=== PATIENT | male | born 1965 | race Caucasian/White ===

== ENCOUNTER → 2018-11-23 | Outpatient (CLI) | payer MEDICARE, OTHER ==
[~2018-11-23] MED LIST: GENVOYA TABLET1 EACH PO; GLIM2 PO; LEVSOD125 PO; LOSA25 PO; METF500 PO; Omeprazole20 M1; VALACYCLOVIR1000 MG PO; VARE1 PO
[2018-11-23 12:53] LABS: Adenovirus F 40/41 Not Detected (NOT DETECT); Astrovirus Not Detected (NOT DETECT); Campylobacter Sp Not Detected (NOT DETECT); Cryptosporidium Not Detected (NOT DETECT); Cyclospora Cayetanensis Not Detected (NOT DETECT); E. Coli O157 Not Detected (NOT DETECT); Entamoeba Histolytica Not Detected (NOT DETECT); Enteroaggregative E. coli-EAEC Not Detected (NOT DETECT); Enteropathogenic E. coli-EPEC Not Detected (NOT DETECT); Enterotoxigenic E. coli-ETEC Not Detected (NOT DETECT); Giardia Lamblia Not Detected (NOT DETECT); Norovirus GI/GII Not Detected (NOT DETECT); Plesiomonas Shigelloides Not Detected (NOT DETECT); Rotavirus A Not Detected (NOT DETECT); Salmonella Sp Not Detected (NOT DETECT); Sapovirus Not Detected (NOT DETECT); Shiga Toxin-prod E. coli-STEC Not Detected (NOT DETECT); Shigella/Enteroin E. coli-EIEC Not Detected (NOT DETECT); Vibrio Cholerae Not Detected (NOT DETECT); Vibrio Sp Not Detected (NOT DETECT); Yersinia Enterocolitica Not Detected (NOT DETECT)
== END ==
LOC: LAB 11:10 → LAB SHORT 11:10
PROVIDERS: Internal Medicine Infectious Disease
DX: K52.9 Noninfective gastroenteritis and colitis, unspecified (principal)
CPT/HCPCS: 87507; 89055

== ENCOUNTER 2019-08-08 17:23 | Inpatient (IN) | payer MEDICARE, OTHER ==
[~2019-08-08] VITALS: Ht 177.8 cm; Wt 94.2 kg
[~2019-08-08 17:23] MED LIST changes: -Omeprazole20 M1; +Omeprazole20 M1 PO; +SITA50T2 PO
[2019-08-08 18:53] LABS: BASOPHILS ABSOLUTE AUTO 0.03 K/mm3 (0.00-0.23); BASOPHILS PERCENT AUTO 0 % (0-2); EOSINOPHILS ABSOLUTE AUTO 0.05 K/mm3 (0.00-0.68); EOSINOPHILS PERCENT AUTO 1 % (0-6); Hematocrit 42.5 % (37.0-53.0); Hemoglobin 14.7 g/dL (13.5-17.5); IMMATURE GRAN ABSOLUTE AUTO 0.04 K/mm3 (0.00-0.10); IMMATURE GRAN PERCENT AUTO 1 % (0-1); LYMPHOCYTES ABSOLUTE AUTO 1.29 K/mm3 (0.84-5.20); LYMPHOCYTES PERCENT AUTO 19 % (21-46); MONOCYTES ABSOLUTE AUTO 0.35 K/mm3 (0.16-1.47); MONOCYTES PERCENT AUTO 5 % (4-13); Mean Corpuscular HGB 31.7 pg (26.0-34.0); Mean Corpuscular HGB Conc 34.6 g/dL (31.5-36.5); Mean Corpuscular Volume 92 fL (80-100); Mean Platelet Volume 11.2 fL (9.1-12.4); NEUTROPHILS PERCENT AUTO 74 % (41-73); Platelet Count 126 K/mm3 (150-400); RDW Coefficient Variation 12.6 % (11.7-14.2); RDW Standard Deviation 42.2 fL (35.1-46.3); Red Blood Cell Count 4.63 M/mm3 (4.30-5.90); White Blood Cell Count 6.86 K/mm3 (4.00-11.30)
[2019-08-08] MEDS ORDERED: Metformin HCl1000 MG PO (19:07)
[2019-08-08] MEDS ORDERED: Mobic15 MG PO (19:08)
[2019-08-08 19:27] LABS: Alanine Aminotransfer (ALT/SGP 92 U/L (12-78); Alk Phos 72 U/L (50-136); Anion Gap 10 mmol/L (6-16); Aspartate Aminotrans (AST/SGOT 51 U/L (12-37); Bilirubin, Total 0.5 mg/dL (0.1-1.0); Blood Urea Nitrogen 11 mg/dL (8-24); CO2, Blood 20 mmol/L (21-32); Calcium, Blood 9.3 mg/dL (8.5-10.1); Chloride, Blood 102 mmol/L (98-108); Creatinine, Blood 0.73 mg/dL (0.60-1.20); Glomerular Filtration Rate >60 (60-); Glucose, Blood 253 mg/dL (70-99); Potassium, Blood 3.8 mmol/L (3.5-5.5); Sodium, Blood 132 mmol/L (136-145); Troponin I <0.015 ng/mL (0.000-0.040)
--- NOTE | 2019-08-08 23:37 | NUR ---
ASSUMED PT CARE FROM [facility] AT 2150 PT ALERT AND ORIENTED AND ABLE TO MAKE HIS NEEDS KNOWN. DENIES CHEST PAIN UPON ARRIVAL TO UNIT. RHYTHM SHOWS NSR WITH ST ELEVATION; HR 80-90'S WITH ELEVATED BP'S 150-160'S. TR BAND IN PLACE INFLATED WITH AIR. SITE IS SOFT, NON-TENDER WITH NO SIGNS OF HEMATOMA OR BLEEDING. CAP REFILL TO FINGERS IS LESS THAN 3 SECS AND PT DENIES ANY NUMBNESS/TINGLING. PT STATED HE HAD THE URGE TO PEE; PER REPORT PT RECEIVED A ONE TIME DOSE OF LASIX 20MG D/T PT COUGHING ON TABLE AND DR. GARCIA WANTED TO AVOID PT FROM GOING INTO PULMONARY EDEMA. PT HAS BEEN VOIDING ADEQUATELY AND LUNG SOUNDS ARE CLEAR T/O. [facility]NP LAB IS NOT ELEVATED; THEREFORE, DR. GARCIA WANTS TO CONTINUE IV FLUIDS AT 75MLS/HR. PT CONTINUES TO DENY CHEST PAIN. JUST ANXIOUS TO GO HOME. CALL LIGHT LEFT WITHIN REACH AND PT IS ABLE TO MAKE HIS NEEDS KNOWN.
[2019-08-09 00:11] LABS: Creatine Kinase MB 427.9 ng/mL (0.0-3.6); Creatine Kinase MB Index 10.8 (0.0-4.0)
--- NOTE | 2019-08-09 06:07 | NUR ---
END OF SHIFT SUMMARY PT HAS REMAINED ALERT AND ORIENTED T/O SHIFT. TR BAND REMOVED FROM R RADIAL SITE AT APPROXIMATELY 0330; NO OOZING, HEMATOMA, SWELLING, OR TENDERNESS NOTED TO SITE. PT DENIES ANY NUMBNESS/TINGLING TO FINGERS. CAP REFILL <3 SEC. RHYTHM REMAINS SINUS WITH ST ELEVATION. PT DENIED CHEST PAIN T/O SHIFT. HOWEVER, HE DID STATE HE WOULD WAKE UP IN A PANIC AND FEEL SHORT OF BREATHE. PT HAD ONE EPISODE OF EMESIS THAT WAS THICK IN TEXTURE, WITH UNDIGESTED FOOD THAT WAS NOTED TO BE A DARK YELLOW; 700CC COUNTED FOR TOTAL. PT MEDICATED WITH ZOFRAN THAT WAS EFFECTIVE. SPOT CHECKED BLOOD SUGAR, WHICH WAS NOTED TO BE 150. PT VERY COOPERATIVE WITH CARES. CALL LIGHT LEFT WITHIN REACH; PT ABLE TO MAKE HIS NEEDS KNOWN.
[2019-08-09 06:27] LABS: Alanine Aminotransfer (ALT/SGP 133 U/L (12-78); Albumin, Blood 3.7 g/dL (3.4-5.0); Alk Phos 61 U/L (50-136); Anion Gap 7 mmol/L (6-16); Aspartate Aminotrans (AST/SGOT 598 U/L (12-37); Bilirubin, Total 0.8 mg/dL (0.1-1.0); Blood Urea Nitrogen 10 mg/dL (8-24); CO2, Blood 23 mmol/L (21-32); Calcium, Blood 8.8 mg/dL (8.5-10.1); Chloride, Blood 103 mmol/L (98-108); Creatinine, Blood 0.67 mg/dL (0.60-1.20); Globulin, Blood 3.7 g/dL (2.2-4.0); Glomerular Filtration Rate >60 (60-); Glucose, Blood 175 mg/dL (70-99); Potassium, Blood 3.8 mmol/L (3.5-5.5); Sodium, Blood 133 mmol/L (136-145); Total Protein, Blood 7.4 g/dL (6.4-8.2)
[2019-08-09 06:28] LABS: BASOPHILS ABSOLUTE AUTO 0.04 K/mm3 (0.00-0.23); BASOPHILS PERCENT AUTO 0 % (0-2); EOSINOPHILS ABSOLUTE AUTO 0.02 K/mm3 (0.00-0.68); EOSINOPHILS PERCENT AUTO 0 % (0-6); Hematocrit 41.2 % (37.0-53.0); Hemoglobin 14.4 g/dL (13.5-17.5); IMMATURE GRAN ABSOLUTE AUTO 0.06 K/mm3 (0.00-0.10); IMMATURE GRAN PERCENT AUTO 1 % (0-1); LYMPHOCYTES ABSOLUTE AUTO 1.48 K/mm3 (0.84-5.20); LYMPHOCYTES PERCENT AUTO 15 % (21-46); MONOCYTES ABSOLUTE AUTO 0.64 K/mm3 (0.16-1.47); MONOCYTES PERCENT AUTO 7 % (4-13); Mean Corpuscular HGB 31.2 pg (26.0-34.0); Mean Corpuscular Volume 89 fL (80-100); Mean Platelet Volume 11.3 fL (9.1-12.4); NEUTROPHILS ABSOLUTE AUTO 7.45 K/mm3 (1.96-9.15); NEUTROPHILS PERCENT AUTO 77 % (41-73); Platelet Count 109 K/mm3 (150-400); RDW Coefficient Variation 12.6 % (11.7-14.2); RDW Standard Deviation 41.2 fL (35.1-46.3); Red Blood Cell Count 4.61 M/mm3 (4.30-5.90); White Blood Cell Count 9.69 K/mm3 (4.00-11.30)
[2019-08-09 07:01] LABS: Creatine Kinase MB 339.9 ng/mL (0.0-3.6); Creatine Kinase MB Index 11.1 (0.0-4.0)
--- NOTE | 2019-08-09 07:14 | NUR ---
START OF SHIFT NOTE: RECEIVED REPORT FROM MELVI CUEVAS RN, ASSUMED CARE, PATIENT IS AWAKE, ALERT AND ORIENTED, STATES THAT HE "FEELS WORN OUT", SAID THAT "EVERY TIME I DOZE OFF I WAKE UP AND HAVE ANXIETY ABOUT NOT WAKING UP WHEN I GO TO SLEEP", WILL CALL DR. GARCIA FOR ANXIETY MED, LUNG SOUNDS ARE CLEAR, NSR WITH HR IN 70'S, BT'S PRESENT, USES URINAL, PEDAL PULSES PRESENT, RIGHT RADIAL ACCESS SITE C/D/I, NO HEMATOMA, NO BLEEDING NOTED, AFEBRILE, DENIES CHEST PAIN/DISCOMFORT AT THIS TIME, CALL LIGHT IN REACH, WILL CONTINUE TO MONITOR.
--- NOTE | 2019-08-09 07:44 | NUR ---
PATIENT IS PLEASANT AND COOPERATIVE, VERBALIZED SOME ANXIETY ABOUT HOSPITAL STAY AND POSSIBLY "NOT WAKING UP WHEN GOING TO SLEEP", MEDICATIONS WERE DISCUSSED AND PATIENT REPORTED THAT HE HAS "SEVERE CHEST PAIN" WHEN TAKING STATINS, WILL HAVE HOME MEDS BROUGHT IN, PATIENT WAS ASKED ABOUT HIS CODE STATUS, NOC SHIFT REPORTED THAT PATIENT WANTED TO BE A DNR, THIS AM HE MENTIONED THAT FOR NOW HE WANTS TO REMAIN A FULL CODE, BLOOD SUGARS CHECKED AND RESULT WAS 187, NO COVERAGE NEEDED AT THIS TIME, CALL LIGHT IN REACH, WILL CONTINUE TO MONITOR.
--- NOTE | 2019-08-09 08:09 | NUR ---
CALLED DR. GARCIA AND PROVIDER HER WITH UPDATE ON PATIENT CONDITION, NEW ORDERS RECEIVED, SHE WILL BE IN TO SEE PATIENT WITHIN 30 TO 40 MINUTES.
--- NOTE | 2019-08-09 08:45 | NUR ---
DR. GARCIA IN TO SEE PATIENT, NEW ORDERS RECEIVED.
--- NOTE | 2019-08-09 09:27 | NUR ---
PATIENT'S SO IN TO BRING IN HOME MEDICATION, SENT TO PHARMACY FOR REGISTRATION AND LABEL. PATIENT CONTINUES TO C/O CHEST PAIN, FEELS THAT PAIN IS INCREASING, DESCRIBES PAIN IF HE GOT "HIT IN THE CHEST".
--- NOTE | 2019-08-09 09:46 | NUR ---
PATIENT EXPRESSED INTEREST IN HAVING MUSIC THERAPY, VELMA STRICKLAND CONTACTED, HE WILL BE IN SHORTLY TO SEE PATIENT.
--- NOTE | 2019-08-09 10:00 | NUR ---
PATIENT RECEIVED 1 MG OF DILAUDID FOR CONTINUED CHEST DISCOMFORT AND INABILITY TO RELAX, FRIEND AT BEDSIDE, CALL LIGHT IN REACH, WILL CONTINUE TO MONITOR.
--- NOTE | 2019-08-09 10:34 | NUR ---
PATIENT'S LEFT UPPER ARM PIV INFILTRATED, REMOVED, AND NEW PIV PLACED IN LEFT FA USING ULTRASOUND, PATIENT TOLERATED WELL, PATIENT ALSO STATED THAT HE HAS "NO MORE CHEST DISCOMFORT AND FEELS MORE RELAXED", VELMA, MUSIC THERAPY, IN, PATIENT FEELING BETTER, CALL LIGHT IN REACH, WILL CONTINUE TO MONITOR.
--- NOTE | 2019-08-09 11:20 | NUR ---
PATIENT SLEEPING AT THIS TIME, NO S/S OF DISTRESS, CALL LIGHT IN REACH, WILL CONTINUE TO MONITOR.
--- NOTE | 2019-08-09 12:11 | NUR ---
PATIENT CONTINUES TO SLEEP AND REST COMFORTABLY, NO S/S OF DISTRESS NOTED/OBSERVED, CALL LIGHT IN REACH, WILL CONTINUE TO MONITOR.
--- NOTE | 2019-08-09 12:17 | NUR ---
CALLED [facility] ABOUT PENDING ECHO, WILL BE DONE THIS AFTERNOON.
--- NOTE | 2019-08-09 12:32 | NUR ---
IMAGING IN TO DO ORDERED ECHO.
--- NOTE | 2019-08-09 13:07 | NUR ---
ECHO DONE, PATIENT AWAKE AND EATING LUNCH AT THIS TIME.
--- NOTE | 2019-08-09 13:20 | NUR ---
Echocardiogram completed.
[2019-08-09 14:27] LABS: Creatine Kinase MB 197.9 ng/mL (0.0-3.6)
[2019-08-09 14:39] LABS: Creatine Kinase MB Index 9.8 (0.0-4.0); Troponin I 91.5 ng/mL (0.000-0.040)
--- NOTE | 2019-08-09 17:00 | NUR ---
REPORT CALLED TO SKYLER MUNIZ, IN PCU, PATIENT TRANSFERRED TO PCU ROOM 4 VIA WHEELCHAIR WITH ALL HIS BELONGINGS, AND MEDICATIONS.
--- NOTE | 2019-08-09 17:25 | NUR ---
PATIENT TRASFERRED FROM ICU 3 TP PCU4. SR ON TELE 80-90'S, DENIES ANY CHEST PAIN AT THIS TIME. VSS, ON RA. LUNGS CLEAR THROUGHOUT. SKIN INTACT. R RADIAL SITE WNL, BOARD TO R FA REMAINS IN PLACE. PATIENT AMBULATORY WITH A SBA. ORIENTED TO ROOM AND USE OF CALL LIGHT. 2 20G IV'S TO L WRIST AND FA WNL. NS @ 75ML/HR INFUSING. PATIENT DENIES ANY NAUSEA OR ABDOMINAL PAIN, TOLERATING CARDIAC DIET. VOIDING WELL TODAY, REPORTS LASTY BM ON 08/07. ACHS BLOOD SUGARS, NO COVERAGE NEEDED.
[2019-08-10 04:14] LABS: Anion Gap 5 mmol/L (6-16); Blood Urea Nitrogen 11 mg/dL (8-24); CHOL/HDL RATIO 5.1; CO2, Blood 25 mmol/L (21-32); Calcium, Blood 8.5 mg/dL (8.5-10.1); Chloride, Blood 108 mmol/L (98-108); Cholesterol 144 mg/dL (50-200); Creatinine, Blood 0.73 mg/dL (0.60-1.20); Glomerular Filtration Rate >60 (60-); Glucose, Blood 151 mg/dL (70-99); HDL Cholesterol 28 mg/dL (>39); LDL/HDL RATIO 2.2; Low Density Lipoprotein Chol 63 mg/dL (0-110); Potassium, Blood 4.3 mmol/L (3.5-5.5); Sodium, Blood 138 mmol/L (136-145); Triglycerides 266 mg/dL (30-160); Very Low Density Lipoprot Chol 53 mg/dL (6-32)
--- NOTE | 2019-08-10 05:36 | NUR ---
PCU NOC SHIFT SUMMARY PATIENT ALERT AND ORIENTED X4 T/O SHIFT. INDEPENDENT IN ROOM. PATIENT DENIES ANY CHEST PAIN T/O SHIFT. HEART RATE REMAINED NSR WITH NO CARDIAC EVENTS PER MECHANICAL SYSTEMS CONTROL ENGINEER (CYNTHIA). ARM BOARD REMAINED INPLACE ON RIGHT RADIAL - TEGADERM DRESS NOTED OVER PCI SITE, NO BLEEDING OR HEMATOMA NOTED. PATIENT RESTED WELL. CALL LIGHT W/I REACH, BED IN LOWEST POSITION. PATIENT DENIES ANY NEEDS AT THIS TIME. WILL CONTINUE TO MONITOR AND GIVE REPORT TO MIGUEL BOOTHE RN.
--- NOTE | 2019-08-10 07:50 | NUR ---
AM NOTE. ASSUMED CARE OF PT APROX 0700, PT IS A&Ox4 AND IND IN THE ROOM. PT WAS ADMITTED FOR STEMI S/P STENT PLACEMENT. PT DENIES CHEST PAIN AT THIS TIME. PT'S BP IS 150/100, PT MEDICATED PER EMAR. NO EDEMA NOTED ON ASSESSMENT. L/S CLEAR T/O, PT IS ON RA. BT PRESENT AND HYPERACTIVE. ABD IS SOFT AND NONTENDER TO PALP. RADIAL SITE IS C/D/I, ARM BOARD REMOVED, TEGADERM STILL INTACT. CALL LIGHT IN REACH, WILL CONTINUE TO MONITOR.
[2019-08-10] MEDS ORDERED: ASPI81CH PO (08:57)
[2019-08-10] MEDS ORDERED: CLOP75 PO (08:58)
[2019-08-10] MEDS ORDERED: Lopressor 50 mg50 MG PO (08:59)
[2019-08-10] MEDS ORDERED: NITR.4SL SL (09:00)
--- NOTE | 2019-08-10 10:54 | NUR ---
PT D/C PT D/C HOME, MEDICATIONS CALLED INTO PT'S PHARMACY OF CHOICE, EDUCATION AND D/C INSTRUCTIONS PROVIDED TO PT. IV'S REMOVED WNL. PT DENIES ANY CHEST PAIN/PRESSURE, N/V OR SOB.
== END 2019-08-10 10:53 | disposition home or self-care (01) | DRG 247 ==
LOC: ER 17:23 → ICUW 19:41 → ICUE 20:25 → PCU 08-09 17:21
PROVIDERS: Physician Assistant; ADMIT Internal Medicine Interventional Cardiology
PROC: 027034Z Dilation of Coronary Artery, One Artery with Drug-eluting Intraluminal Device, Percutaneous Approach (ICD-10-PCS; principal; 2019-08-08)
PROC: 02C03ZZ Extirpation of Matter from Coronary Artery, One Artery, Percutaneous Approach (ICD-10-PCS; 2019-08-08)
PROC: B2111ZZ Fluoroscopy of Multiple Coronary Arteries using Low Osmolar Contrast (ICD-10-PCS; 2019-08-08)
DX: I21.3 ST elevation (STEMI) myocardial infarction of unspecified site (principal); I47.2 Ventricular tachycardia; B20 Human immunodeficiency virus [HIV] disease; M19.90 Unspecified osteoarthritis, unspecified site; I10 Essential (primary) hypertension; E78.5 Hyperlipidemia, unspecified; K21.9 Gastro-esophageal reflux disease without esophagitis; E03.9 Hypothyroidism, unspecified; E11.9 Type 2 diabetes mellitus without complications; F17.210 Nicotine dependence, cigarettes, uncomplicated; Z79.84 Long term (current) use of oral hypoglycemic drugs; F41.9 Anxiety disorder, unspecified; M06.9 Rheumatoid arthritis, unspecified
CPT/HCPCS: 36415; 71045; 80048; 80053; 80061; 82550; 82553; 82947; 83036; 83880; 84484; 85025; 85347; 92973; 93005; 93010; 93306; 93454; 96374; 96375; 96376; 99152; 99153; 99285-25; A9270; C1725; C1757; C1769; C1874; C1887; C1894; C9606; J0282; J1170; J1644; J1940; J2250; J2405; J3010; J3246; J7030; Q9967

== ENCOUNTER 2020-03-19 06:57 | Day surgery (SDC) | payer MEDICARE, OTHER ==
[~2020-03-19] VITALS: Ht 175.3 cm; Wt 97.7 kg
[~2020-03-19 06:57] MED LIST changes: +ASPI81CH PO; +CLOP75 PO; +Lopressor 50 mg50 MG PO; +Metformin HCl1000 MG PO; +Mobic15 MG PO; +NITR.4SL SL
== END 2020-03-19 09:07 | disposition home or self-care (01) ==
LOC: ORSCSDS 06:57
PROVIDERS: Ophthalmology
PROC: 08RJ3JZ Replacement of Right Lens with Synthetic Substitute, Percutaneous Approach (ICD-10-PCS; principal; 2020-03-19 08:30)
DX: H25.11 Age-related nuclear cataract, right eye (principal); E11.9 Type 2 diabetes mellitus without complications; F17.210 Nicotine dependence, cigarettes, uncomplicated; I25.2 Old myocardial infarction; Z79.899 Other long term (current) drug therapy; Z79.84 Long term (current) use of oral hypoglycemic drugs
CPT/HCPCS: 82947; J2001; J2250; J3010; J3301; J7040; V2632

== ENCOUNTER 2020-06-19 04:38 | Inpatient (IN) | payer MEDICARE, OTHER ==
[~2020-06-19] VITALS: Ht 175.3 cm; Wt 100.1 kg
[~2020-06-19 04:38] MED LIST changes: -Metformin HCl1000 MG PO
[2020-06-19 05:15] LABS: BASOPHILS ABSOLUTE AUTO 0.05 K/mm3 (0.00-0.23); BASOPHILS PERCENT AUTO 1 % (0-2); EOSINOPHILS ABSOLUTE AUTO 0.05 K/mm3 (0.00-0.68); EOSINOPHILS PERCENT AUTO 1 % (0-6); Hematocrit 39.2 % (37.0-53.0); Hemoglobin 13.4 g/dL (13.5-17.5); IMMATURE GRAN PERCENT AUTO 1 % (0-1); LYMPHOCYTES ABSOLUTE AUTO 1.19 K/mm3 (0.84-5.20); LYMPHOCYTES PERCENT AUTO 13 % (21-46); MONOCYTES ABSOLUTE AUTO 0.49 K/mm3 (0.16-1.47); MONOCYTES PERCENT AUTO 5 % (4-13); Mean Corpuscular HGB 31.5 pg (26.0-34.0); Mean Corpuscular HGB Conc 34.2 g/dL (31.5-36.5); Mean Corpuscular Volume 92 fL (80-100); Mean Platelet Volume 10.7 fL (9.1-12.4); NEUTROPHILS ABSOLUTE AUTO 7.16 K/mm3 (1.96-9.15); NEUTROPHILS PERCENT AUTO 79 % (41-73); Platelet Count 174 K/mm3 (150-400); RDW Coefficient Variation 13.8 % (11.7-14.2); RDW Standard Deviation 46.5 fL (35.1-46.3); Red Blood Cell Count 4.26 M/mm3 (4.30-5.90); White Blood Cell Count 9.04 K/mm3 (4.00-11.30)
[2020-06-19 05:35] LABS: Alanine Aminotransfer (ALT/SGP 32 U/L (12-78); Albumin, Blood 3.5 g/dL (3.4-5.0); Albumin/Globulin Ratio 0.8 (0.8-1.8); Alk Phos 65 U/L (50-136); Anion Gap 8 mmol/L (6-16); Aspartate Aminotrans (AST/SGOT 26 U/L (12-37); Bilirubin, Total 1.3 mg/dL (0.1-1.0); Blood Urea Nitrogen 9 mg/dL (8-24); Bun/Creatinine Ratio 11.2 (12.0-20.0); CO2, Blood 22 mmol/L (21-32); Calcium, Blood 8.8 mg/dL (8.5-10.1); Chloride, Blood 101 mmol/L (98-108); Creatinine, Blood 0.81 mg/dL (0.60-1.20); Globulin, Blood 4.5 g/dL (2.2-4.0); Glomerular Filtration Rate >60 (60-); Glucose, Blood 148 mg/dL (70-99); Potassium, Blood 4.3 mmol/L (3.5-5.5); Sodium, Blood 131 mmol/L (136-145); Troponin I 0.294 ng/mL (0.000-0.040)
[2020-06-20 05:58] LABS: Anion Gap 10 mmol/L (6-16); Blood Urea Nitrogen 13 mg/dL (8-24); Bun/Creatinine Ratio 13.9 (12.0-20.0); CO2, Blood 23 mmol/L (21-32); Calcium, Blood 8.9 mg/dL (8.5-10.1); Chloride, Blood 102 mmol/L (98-108); Creatinine, Blood 0.93 mg/dL (0.60-1.20); Glomerular Filtration Rate >60 (60-); Glucose, Blood 141 mg/dL (70-99); Sodium, Blood 135 mmol/L (136-145)
[2020-06-20 09:05] LABS: U Amphetamine Screen Not Detected; U Barbituate Screen Not Detected; U Benzodiazapine Screen Not Detected; U Buprenorphine Screen Not Detected; U Cannabinoids Screen Not Detected; U Cocaine Screen Not Detected; U Methadone Screen Not Detected; U Methamphetamine Screen Not Detected; U Opiates Screen DETECTED; U Oxycodone Screen Not Detected; U Phencyclidine Screen Not Detected; U Propoxyphene Screen Not Detected
[2020-06-20 14:11] LABS: % CD 4 POS. LYMPH. 42.7 % (30.8-58.5); ABSOLUTE CD 4 HELPER 555 /uL (359-1519); BASOS 0 % (Not Estab.); EOS 1 % (Not Estab.); EOS (ABSOLUTE) 0.1 x10E3/uL (0.0-0.4); HEMATOCRIT 37.2 % (37.5-51.0); HEMOGLOBIN 12.8 g/dL (13.0-17.7); IMMATURE GRANS (ABS) 0.1 x10E3/uL (0.0-0.1); IMMATURE GRANULOCYTES 1 % (Not Estab.); LYMPHS 19 % (Not Estab.); LYMPHS (ABSOLUTE) 1.3 x10E3/uL (0.7-3.1); MCH 31.5 pg (26.6-33.0); MCHC 34.4 g/dL (31.5-35.7); MCV 92 fL (79-97); MONOCYTES 7 % (Not Estab.); MONOCYTES(ABSOLUTE) 0.5 x10E3/uL (0.1-0.9); NEUTROPHILS 72 % (Not Estab.); NEUTROPHILS (ABSOLUTE) 4.9 x10E3/uL (1.4-7.0); PLATELETS 161 x10E3/uL (150-450); RBC 4.06 x10E6/uL (4.14-5.80); RDW 14.8 % (11.6-15.4); WBC 6.9 x10E3/uL (3.4-10.8)
[2020-06-20] MEDS ORDERED: ASPI81CH PO (16:59)
[2020-06-20] MEDS ORDERED: FURO20 PO (17:00)
[2020-06-20] MEDS ORDERED: SPIR25 PO (17:00)
== END 2020-06-20 17:13 | disposition home or self-care (01) | DRG 291 ==
LOC: ER 04:38 → ERHOLD 06:19 → ICUE 07:51 → MEDS 13:07
PROVIDERS: Emergency Medicine; Nurse Practitioner Acute Care; ADMIT Internal Medicine
DX: I11.0 Hypertensive heart disease with heart failure (principal); J96.01 Acute respiratory failure with hypoxia; E87.1 Hypo-osmolality and hyponatremia; C81.90 Hodgkin lymphoma, unspecified, unspecified site; I50.33 Acute on chronic diastolic (congestive) heart failure; E11.9 Type 2 diabetes mellitus without complications; I10 Essential (primary) hypertension; E03.9 Hypothyroidism, unspecified; Z21 Asymptomatic human immunodeficiency virus [HIV] infection status; I25.10 Atherosclerotic heart disease of native coronary artery without angina pectoris; M06.9 Rheumatoid arthritis, unspecified; I25.2 Old myocardial infarction; F17.210 Nicotine dependence, cigarettes, uncomplicated; Z79.84 Long term (current) use of oral hypoglycemic drugs; Z79.02 Long term (current) use of antithrombotics/antiplatelets
CPT/HCPCS: 36415; 71045; 80048; 80053; 82947; 83605; 83880; 84132; 84145; 84443; 84484; 85025; 86361; 87040; 93005; 93010; 94644; 96374; 99285-25; 99406; A9270; A9270-GY; C8929; J1650; J1940; Q9957

== ENCOUNTER → 2021-08-05 | Outpatient (CLI) | payer MEDICARE, OTHER ==
[~2021-08-05] MED LIST changes: +FURO20 PO; +SPIR25 PO
[2021-08-05 13:01] LABS: BASOPHILS ABSOLUTE AUTO 0.04 K/mm3 (0.00-0.23); BASOPHILS PERCENT AUTO 1 % (0-2); EOSINOPHILS ABSOLUTE AUTO 0.08 K/mm3 (0.00-0.68); EOSINOPHILS PERCENT AUTO 1 % (0-6); Hematocrit 46.6 % (37.0-53.0); Hemoglobin 16.2 g/dL (13.5-17.5); IMMATURE GRAN ABSOLUTE AUTO 0.06 K/mm3 (0.00-0.10); IMMATURE GRAN PERCENT AUTO 1 % (0-1); LYMPHOCYTES ABSOLUTE AUTO 1.52 K/mm3 (0.84-5.20); LYMPHOCYTES PERCENT AUTO 23 % (21-46); MONOCYTES ABSOLUTE AUTO 0.49 K/mm3 (0.16-1.47); MONOCYTES PERCENT AUTO 7 % (4-13); Mean Corpuscular HGB 32.1 pg (26.0-34.0); Mean Corpuscular HGB Conc 34.8 g/dL (31.5-36.5); Mean Corpuscular Volume 92 fL (80-100); NEUTROPHILS ABSOLUTE AUTO 4.49 K/mm3 (1.96-9.15); NEUTROPHILS PERCENT AUTO 67 % (41-73); Platelet Count 153 K/mm3 (150-400); RDW Coefficient Variation 13.4 % (11.7-14.2); Red Blood Cell Count 5.05 M/mm3 (4.30-5.90); White Blood Cell Count 6.68 K/mm3 (4.00-11.30)
[2021-08-05 14:08] LABS: Alanine Aminotransfer (ALT/SGP 39 U/L (12-78); Albumin, Blood 3.9 g/dL (3.4-5.0); Albumin/Globulin Ratio 0.9 (0.8-1.8); Alk Phos 61 U/L (50-136); Anion Gap 8 mmol/L (6-16); Aspartate Aminotrans (AST/SGOT 26 U/L (12-37); Bilirubin, Total 0.9 mg/dL (0.1-1.0); Blood Urea Nitrogen 16 mg/dL (8-24); Bun/Creatinine Ratio 15.5 (12.0-20.0); CO2, Blood 25 mmol/L (21-32); Calcium, Blood 9.1 mg/dL (8.5-10.1); Chloride, Blood 101 mmol/L (98-108); Creatinine, Blood 1.03 mg/dL (0.60-1.20); Globulin, Blood 4.3 g/dL (2.2-4.0); Glomerular Filtration Rate >60 (60-); Glucose, Blood 151 mg/dL (70-99); Potassium, Blood 4.1 mmol/L (3.5-5.5); Sodium, Blood 134 mmol/L (136-145); Total Protein, Blood 8.2 g/dL (6.4-8.2)
[2021-08-06 13:10] LABS: % CD 4 POS. LYMPH. 34.9 % (30.8-58.5); ABSOLUTE CD 4 HELPER 558 /uL (359-1519); BASOS 0 % (Not Estab.); EOS 1 % (Not Estab.); EOS (ABSOLUTE) 0.1 x10E3/uL (0.0-0.4); HEMATOCRIT 45.9 % (37.5-51.0); HEMOGLOBIN 16.1 g/dL (13.0-17.7); IMMATURE GRANS (ABS) 0.1 x10E3/uL (0.0-0.1); IMMATURE GRANULOCYTES 1 % (Not Estab.); LYMPHS 23 % (Not Estab.); LYMPHS (ABSOLUTE) 1.6 x10E3/uL (0.7-3.1); MCH 32.4 pg (26.6-33.0); MCHC 35.1 g/dL (31.5-35.7); MCV 92 fL (79-97); MONOCYTES 7 % (Not Estab.); MONOCYTES(ABSOLUTE) 0.5 x10E3/uL (0.1-0.9); NEUTROPHILS 68 % (Not Estab.); NEUTROPHILS (ABSOLUTE) 4.5 x10E3/uL (1.4-7.0); PLATELETS 150 x10E3/uL (150-450); RBC 4.97 x10E6/uL (4.14-5.80); RDW 13.5 % (11.6-15.4); WBC 6.7 x10E3/uL (3.4-10.8)
[2021-08-07 08:11] LABS: HIV-1 RNA BY PCR <20 (.)
== END | disposition home or self-care (01) ==
LOC: LAB SHORT 11:59
PROVIDERS: Internal Medicine Infectious Disease
DX: B20 Human immunodeficiency virus [HIV] disease (principal)
CPT/HCPCS: 80053; 85025

== ENCOUNTER → 2021-09-14 | Outpatient (CLI) | payer MEDICARE, OTHER ==
[2021-09-14 16:09] LABS: BASOPHILS ABSOLUTE AUTO 0.04 K/mm3 (0.00-0.23); BASOPHILS PERCENT AUTO 1 % (0-2); EOSINOPHILS PERCENT AUTO 2 % (0-6); Hematocrit 47.5 % (37.0-53.0); Hemoglobin 16.3 g/dL (13.5-17.5); IMMATURE GRAN ABSOLUTE AUTO 0.04 K/mm3 (0.00-0.10); IMMATURE GRAN PERCENT AUTO 1 % (0-1); LYMPHOCYTES ABSOLUTE AUTO 1.55 K/mm3 (0.84-5.20); LYMPHOCYTES PERCENT AUTO 25 % (21-46); MONOCYTES ABSOLUTE AUTO 0.44 K/mm3 (0.16-1.47); MONOCYTES PERCENT AUTO 7 % (4-13); Mean Corpuscular HGB 31.3 pg (26.0-34.0); Mean Corpuscular HGB Conc 34.3 g/dL (31.5-36.5); Mean Corpuscular Volume 91 fL (80-100); Mean Platelet Volume 10.9 fL (9.1-12.4); NEUTROPHILS ABSOLUTE AUTO 4.05 K/mm3 (1.96-9.15); NEUTROPHILS PERCENT AUTO 65 % (41-73); Platelet Count 183 K/mm3 (150-400); RDW Coefficient Variation 12.9 % (11.7-14.2); RDW Standard Deviation 42.4 fL (35.1-46.3); Red Blood Cell Count 5.21 M/mm3 (4.30-5.90); White Blood Cell Count 6.22 K/mm3 (4.00-11.30)
[2021-09-14 17:49] LABS: Alanine Aminotransfer (ALT/SGP 41 U/L (12-78); Albumin, Blood 4.1 g/dL (3.4-5.0); Albumin/Globulin Ratio 0.9 (0.8-1.8); Alk Phos 72 U/L (50-136); Anion Gap 8 mmol/L (6-16); Aspartate Aminotrans (AST/SGOT 28 U/L (12-37); Bilirubin, Total 1.1 mg/dL (0.1-1.0); Blood Urea Nitrogen 13 mg/dL (8-24); Bun/Creatinine Ratio 14.4 (12.0-20.0); CO2, Blood 23 mmol/L (21-32); Calcium, Blood 9.7 mg/dL (8.5-10.1); Chloride, Blood 104 mmol/L (98-108); Globulin, Blood 4.6 g/dL (2.2-4.0); Glomerular Filtration Rate >60 (60-); Glucose, Blood 82 mg/dL (70-99); Potassium, Blood 4.5 mmol/L (3.5-5.5); Sodium, Blood 135 mmol/L (136-145); Total Protein, Blood 8.7 g/dL (6.4-8.2)
== END | disposition home or self-care (01) ==
LOC: LAB 14:55 → LAB SHORT 14:55
PROVIDERS: Nurse Practitioner Family
DX: I50.9 Heart failure, unspecified (principal)
CPT/HCPCS: 80053; 83880; 85025

== ENCOUNTER 2023-01-20 09:11 | Day surgery (SDC) | payer MEDICARE, OTHER ==
[~2023-01-20] VITALS: Ht 175.3 cm; Wt 81.2 kg
[~2023-01-20 09:11] MED LIST changes: +METO25ER PO; +PANT40 PO
[2023-01-20] MEDS ORDERED: BUPR150ER PO (09:35)
[2023-01-20] MEDS ORDERED: JARDIANCE10 MG PO (09:35)
--- NOTE | 2023-01-20 10:08 | NUR ---
PATIENT TO THE LAB FOR THE PROCEDURE.
[2023-01-20 10:10] LABS: International Normalized Ratio 1.07; Prothrombin Time Results 11.2 Sec (9.7-11.5)
[2023-01-20 10:14] LABS: Bun/Creatinine Ratio 22.5 (12.0-20.0); Calcium, Blood 9.2 mg/dL (8.5-10.1); Creatinine, Blood 1.02 mg/dL (0.60-1.20); Potassium, Blood 4.5 mmol/L (3.5-5.5)
[2023-01-20 12:37] LABS: BASOPHILS ABSOLUTE AUTO 0.04 K/mm3 (0.00-0.23); BASOPHILS PERCENT AUTO 1 % (0-2); EOSINOPHILS ABSOLUTE AUTO 0.08 K/mm3 (0.00-0.68); EOSINOPHILS PERCENT AUTO 2 % (0-6); Hematocrit 45.2 % (37.0-53.0); Hemoglobin 13.7 g/dL (13.5-17.5); IMMATURE GRAN ABSOLUTE AUTO 0.02 K/mm3 (0.00-0.10); IMMATURE GRAN PERCENT AUTO 0 % (0-1); LYMPHOCYTES ABSOLUTE AUTO 1.29 K/mm3 (0.84-5.20); LYMPHOCYTES PERCENT AUTO 24 % (21-46); MONOCYTES ABSOLUTE AUTO 0.48 K/mm3 (0.16-1.47); MONOCYTES PERCENT AUTO 9 % (4-13); Mean Corpuscular HGB 24.1 pg (26.0-34.0); Mean Corpuscular HGB Conc 30.3 g/dL (31.5-36.5); Mean Corpuscular Volume 80 fL (80-100); Mean Platelet Volume 10.5 fL (9.1-12.4); NEUTROPHILS ABSOLUTE AUTO 3.49 K/mm3 (1.96-9.15); NEUTROPHILS PERCENT AUTO 65 % (41-73); Platelet Count 200 K/mm3 (150-400); RDW Coefficient Variation 16.3 % (11.7-14.2); RDW Standard Deviation 44.6 fL (35.1-46.3); Red Blood Cell Count 5.68 M/mm3 (4.30-5.90)
--- NOTE | 2023-01-20 13:00 | NUR ---
ARRIVAL: Patient arrived from the outside laborer via bed to PCU 10, heart center RN Charly at bedside to give report. Patient is alert and oriented x4. He is here after a Dual Chamber ICD was placed to his right chest. ICD to right upper chest is covered with gauze and opsite, CDI-no drainage noted. HRR, SR in the 70s with some PVCs. PT reports some soreness to ICD site. LS CTA, Biox is WNL on RA. BT+, pt states he had a BM this AM. PPP. VSS. CBG in the 90s. Pt oriented to the room and call light. Call light in reach.
--- NOTE | 2023-01-20 13:30 | NUR ---
Dr. Renee came by to see the patient. Right arm in sling. ICD patient instructions at bedside. Patient denies needs at this time. Call light in reach.
--- NOTE | 2023-01-20 19:12 | NUR ---
SUMMARY: Patient arrived to PCU 10 after having an ICD placed. He is alert and Ox4. He had some soreness to the ICD woudn site, [place] provided good relief. HRR, He did have some runs of [place], he was asymptomatic. One soft blood pressure in the afternoon, pt was asymptomatic and follow up blood pressure had a MAP of 83. Patient states his blood pressure at home occasionally dips down this low. LS CTA, Biox WNL on RA. BT+. He has his ICD site to his right upper chest with a gauze dressing and an opsite, CDI-minimal oozing noted. No other acute changes this shift, plan on DC tomorrow. Report given to Shawn medina RN.
--- NOTE | 2023-01-21 05:23 | NUR ---
SHIFT SUMMARY PT A&Ox4, CALLS AND COMMUNICATES NEEDS APPROPRIAETLY. VSS, SpO2> 92% RA, DENIES SOB. BP STABLE, SINUS 70's, JANE CP/PRESSURE. PT REPORTS THAT ICD INSERTION SITE IS SORE AND REPORTS OCCASTIONAL SHARP PAIN. DRESSING WITH SCANT SEROSANGUINEOUS DRAINAGE, THIS IS UNCHANGED FROM START OF SHIFT. ARM SLING IN PLACE. PT IND IN ROOM. NO OTHER EVENTS, WILL REPORT TO ONCOMING RN.
[2023-01-21] MEDS ORDERED: CEPH500 PO (09:03)
[2023-01-21] MEDS ORDERED: HYDROCODONE-AC1 EA19 PO (09:05)
== END 2023-01-21 09:40 | disposition home or self-care (01) ==
LOC: MHTC 09:11 → PCU 09:23 → MHTC 01-21 09:40
PROVIDERS: Internal Medicine Cardiovascular Disease
DX: I42.9 Cardiomyopathy, unspecified (principal); I47.20 Ventricular tachycardia, unspecified; I50.20 Unspecified systolic (congestive) heart failure; I25.118 Atherosclerotic heart disease of native coronary artery with other forms of angina pectoris; I11.0 Hypertensive heart disease with heart failure; E78.5 Hyperlipidemia, unspecified; F17.210 Nicotine dependence, cigarettes, uncomplicated
CPT/HCPCS: 71045; 71046; 76937; 80048; 82947; 85025; 85610; 90686; 99152; 99153; A9270; C1721; C1781; C1894; C1895; C1898; J0690; J1644; J2250; J3010; J7030; J7040

== ENCOUNTER → 2023-02-04 | Outpatient (CLI) | payer MEDICARE, OTHER ==
[~2023-02-04] MED LIST changes: +BUPR150ER PO; +CEPH500 PO; +HYDROCODONE-AC1 EA19 PO; +JARDIANCE10 MG PO
== END ==
LOC: LAB SHORT 11:43
DX: E03.9 Hypothyroidism, unspecified (principal)
CPT/HCPCS: 84443

== ENCOUNTER 2023-05-28 07:35 | Emergency (ER) | payer MEDICARE, OTHER ==
[~2023-05-28] VITALS: Ht 175.3 cm; Wt 86.2 kg
[2023-05-28 08:01] VITALS: BP 102/81
[2023-05-28] MEDS ORDERED: Norco 5-325 Ta1 EACH PO (08:17)
== END 2023-05-28 08:30 | disposition home or self-care (01) ==
LOC: ER 07:35
DX: M10.9 Gout, unspecified (principal); E03.9 Hypothyroidism, unspecified; E11.9 Type 2 diabetes mellitus without complications; M06.9 Rheumatoid arthritis, unspecified; F17.210 Nicotine dependence, cigarettes, uncomplicated
CPT/HCPCS: 96372; 99283; J1885

== ENCOUNTER → 2023-11-02 | Outpatient (CLI) | payer MEDICARE ==
[~2023-11-02] MED LIST changes: +Norco 5-325 Ta1 EACH PO
== END ==
LOC: LAB 09:34 → LAB SHORT 09:34
DX: E03.9 Hypothyroidism, unspecified (principal)
CPT/HCPCS: 84443

== ENCOUNTER → 2023-12-07 | Outpatient (CLI) | payer MEDICARE ==
[2023-12-07 19:01] LABS: CHOL/HDL RATIO 5.8; Cholesterol 190 mg/dL (50-200); HDL Cholesterol 33 mg/dL (>39); LDL/HDL RATIO 2.7; Low Density Lipoprotein Chol 90 mg/dL (0-110); Prostate Specific Antigen 0.482 ng/mL (0.000-4.000); Triglycerides 336 mg/dL (30-160); Very Low Density Lipoprot Chol 67 mg/dL (6-32)
[2023-12-09 07:58] LABS: % CD4 38 % (32-64); ABSOLUTE CD4 695 cells/uL (430-1800)
[2023-12-09 13:11] LABS: A/G RATIO 1.3 (1.2-2.2); BILIRUBIN, TOTAL 0.4 mg/dL (0.0-1.2); CALCIUM, SERUM 9.4 mg/dL (8.7-10.2); CREATININE, SERUM 1.39 mg/dL (0.76-1.27); GLOBULIN, TOTAL 3.4 g/dL (1.5-4.5); POTASSIUM, SERUM 4.4 mmol/L (3.5-5.2); PROTEIN, TOTAL, SERUM 7.8 g/dL (6.0-8.5)
== END | disposition home or self-care (01) ==
LOC: LAB SHORT 14:20 → LAB 14:20
PROVIDERS: Family Medicine
DX: Z12.5 Encounter for screening for malignant neoplasm of prostate (principal); E11.9 Type 2 diabetes mellitus without complications; I10 Essential (primary) hypertension; B20 Human immunodeficiency virus [HIV] disease
CPT/HCPCS: 80053; 80061; 86361; G0103

== ENCOUNTER 2024-05-16 07:41 | Day surgery (SDC) | payer MEDICARE, OTHER ==
[2024-05-16] VITALS (25 sets, daily range): BP systolic 85–140; BP diastolic 61–92
[~2024-05-16] VITALS: Ht 175.3 cm; Wt 86.1 kg
[~2024-05-16 07:41] MED LIST changes: +Benzocaine Oral Spray 0.5ML UD ONE; +Lactated Ringer's 1,000 ML IV SCH; +OZEMPIC0.25 MG/02 SQ; +propofoL 40 ML IV ONE
[2024-05-16] MEDS ORDERED: COLCHICINE0.6 MG (08:10)
[2024-05-16] MEDS ORDERED: GENVOYA TABLET1 EAC1 (08:11)
--- NOTE | 2024-05-16 08:16 | NUR ---
Ambulatory in Day SurgeryPre-Op teaching done. Pt verbalizes understanding. History, Chart, Medications and Allergies reviewed before start of procedure.Patient confirms NPO status and agrees with scheduled surgery. Patient States Post-Procedure ride home has been arranged.
[2024-05-16] MEDS ORDERED: Midazolam HCl 1MG / ML 2ML Vial ONE (08:45)
--- NOTE | 2024-05-16 08:51 | NUR ---
05/16/24 0851 Tonie Mcclellan HISTORY, CHART, MEDICATIONS AND ALLERGIES REVIEWED BEFORE START OF PROCEDURE. PATIENT CONFIRMS NPO STATUS AND AGREES WITH SCHEDULED PROCEDURE. 3-LEAD EKG REVIEWED WITH PHYSICIAN PRIOR TO START OF PROCEDURE. MONITOR INTACT WITH CONTINUOUS PULSE OXIMETRY,CAPNOGRAPHY, 3-LEAD EKG, INTERMITTENT BP. SUPPLEMENTAL O2 TO BE TITRATED THROUGHOUT PROCEDURE TO MAINTAIN O2 SATURATION ABOVE 90%. PATIENT DETERMINED TO BE ASA APPROPRIATE FOR PROPOFOL SEDATION PRIOR TO START OF PROCEDURE BY DR. CAREY
--- NOTE | 2024-05-16 09:58 | NUR ---
TOLERATING PO FLUIDS WELL
--- NOTE | 2024-05-16 10:03 | NUR ---
Discharge instructions reviewed with patient. Patient verbalizes understanding. Copy given to patient to take home. Patient States Post-Procedure ride home has been arranged.
--- NOTE | 2024-05-16 10:09 | NUR ---
Patient up to Ambulate independently. Gait steady. Discharged via wheelchair to private car for ride home.
== END 2024-05-16 10:12 | disposition home or self-care (01) ==
LOC: ORSCMMR 07:41 → ORD 08:30 → ORSCMMR 08:30
PROVIDERS: Internal Medicine Gastroenterology
PROC: 0DBM8ZX Excision of Descending Colon, Via Natural or Artificial Opening Endoscopic, Diagnostic (ICD-10-PCS; principal; 2024-05-16 08:30)
PROC: 0DBH8ZX Excision of Cecum, Via Natural or Artificial Opening Endoscopic, Diagnostic (ICD-10-PCS; principal; 2024-05-16 08:30)
PROC: 0DB98ZX Excision of Duodenum, Via Natural or Artificial Opening Endoscopic, Diagnostic (ICD-10-PCS; principal; 2024-05-16 08:30)
PROC: 0DBC8ZX Excision of Ileocecal Valve, Via Natural or Artificial Opening Endoscopic, Diagnostic (ICD-10-PCS; principal; 2024-05-16 08:30)
DX: D50.0 Iron deficiency anemia secondary to blood loss (chronic) (principal); D12.0 Benign neoplasm of cecum; K63.5 Polyp of colon; Z86.010 Personal history of colon polyps; B20 Human immunodeficiency virus [HIV] disease; E11.9 Type 2 diabetes mellitus without complications; I10 Essential (primary) hypertension; Z85.71 Personal history of Hodgkin lymphoma; I25.10 Atherosclerotic heart disease of native coronary artery without angina pectoris; K21.9 Gastro-esophageal reflux disease without esophagitis; Z79.82 Long term (current) use of aspirin; Z79.85 Long-term (current) use of injectable non-insulin antidiabetic drugs; Z79.899 Other long term (current) drug therapy; F17.210 Nicotine dependence, cigarettes, uncomplicated
CPT/HCPCS: 82947; 88305; A9270; J2250; J2704; J7120

== ENCOUNTER 2025-05-14 12:17 | Day surgery (SDC) | payer MEDICARE, OTHER ==
[~2025-05-14] VITALS: Ht 175.3 cm; Wt 84.2 kg
[~2025-05-14 12:17] MED LIST changes: -Benzocaine Oral Spray 0.5ML UD ONE; +COLCHICINE0.6 MG; +GENVOYA TABLET1 EAC1; -Lactated Ringer's 1,000 ML IV SCH; -propofoL 40 ML IV ONE
[2025-05-14] MEDS ORDERED: TRAZ100 (12:45)
[2025-05-14] MEDS ORDERED: ENTRESTO 49 MG (12:45)
--- NOTE | 2025-05-14 13:20 | NUR ---
05/14/25 1320 LYNDSEY JOHN PT PRESENTS W SEVERAL LOOSE OR MISSING TEETH PREOP.RDS
[2025-05-14 15:04] VITALS: BP 113/89
== END 2025-05-14 15:11 | disposition home or self-care (01) ==
LOC: ORSCSDS 12:17
PROVIDERS: Specialist
PROC: 0DBM8ZX Excision of Descending Colon, Via Natural or Artificial Opening Endoscopic, Diagnostic (ICD-10-PCS; principal; 2025-05-14 13:45)
PROC: 3E0H8GC Introduction of Other Therapeutic Substance into Lower GI, Via Natural or Artificial Opening Endoscopic (ICD-10-PCS; principal; 2025-05-14 13:45)
PROC: 0DBN8ZX Excision of Sigmoid Colon, Via Natural or Artificial Opening Endoscopic, Diagnostic (ICD-10-PCS; principal; 2025-05-14 13:45)
DX: Z09 Encounter for follow-up examination after completed treatment for conditions other than malignant neoplasm (principal); Z86.0100 Personal history of colon polyps, unspecified; D12.4 Benign neoplasm of descending colon; D12.5 Benign neoplasm of sigmoid colon; K57.30 Diverticulosis of large intestine without perforation or abscess without bleeding; E03.9 Hypothyroidism, unspecified; I10 Essential (primary) hypertension; E78.5 Hyperlipidemia, unspecified; I25.10 Atherosclerotic heart disease of native coronary artery without angina pectoris; B20 Human immunodeficiency virus [HIV] disease; K21.9 Gastro-esophageal reflux disease without esophagitis; F17.210 Nicotine dependence, cigarettes, uncomplicated; Z79.899 Other long term (current) drug therapy; Z79.82 Long term (current) use of aspirin
CPT/HCPCS: 82947; 88305; J2704; J7120